=== PATIENT | female | born 1940 | race Caucasian/White ===

== ENCOUNTER → 2018-07-21 09:45 | Outpatient (CLI) | payer MEDICARE, OTHER, SELFPAY ==
[2018-07-21 13:36] LABS: Basophils % 0.5 % (0.1-2.0); Eosinophils # 0.1 K/mm3 (0.0-0.4); Eosinophils % 1.5 % (0.1-12.0); Hematocrit 39.1 % (37.0-47.0); Hemoglobin 12.8 g/dL (12.2-16.2); Lymphocytes # 1.3 K/mm3 (0.7-4.5); Lymphocytes % 26.4 K/mm3 (10-50); Mean Corpuscular HGB Conc 32.7 g/dL (31.8-35.4); Mean Corpuscular Hemoglobin 32.1 pg (27.0-31.2); Mean Corpuscular Volume 98.1 fl (81-99); Mean Platelet Volume 7.2 fl (7.4-10.4); Monocytes # 0.3 K/mm3 (0.1-1.0); Monocytes % 5.7 % (1.7-9.3); Neutrophils # 3.1 K/mm3 (1.8-7.8); Neutrophils % 65.9 % (37.0-80.0); Platelet Count 218 K/mm3 (142-424); Red Blood Count 3.98 M/mm3 (4.20-5.40); Red Cell Distribution Width 12.4 % (11.5-17.5); White Blood Count 4.7 K/mm3 (4.8-10.8)
[2018-07-21 14:09] LABS: Alanine Aminotransferase 17 U/L (12-78); Albumin/Globulin Ratio 1.3 (1.1-1.8); Alkaline Phosphatase 69 U/L (46-116); Anion Gap 15.8 mEq/L (5-15); Aspartate Amino Transferase 15 U/L (15-37); Bilirubin,Total 0.5 mg/dL (0.2-1.0); Blood Urea Nitrogen 14 mg/dL (7-18); Calcium 9.1 mg/dL (8.5-10.1); Carbon Dioxide 28 mmol/L (21.0-32.0); Chloride 102 mmol/L (98-107); Chol/HDL Ratio 2.4 (1-3.5); Cholesterol 126 mg/dL (140-200); Creatinine,Serum 0.72 mg/dL (0.55-1.02); Estimated Glomerular Filt Rate 79 ml/min (>60); Free Thyroxine Index 3.6 ug/dL (5.93-13.13); GFR (African American) 95 ML/MIN (>60); Globulin 3.2 gm/dl (1.3-3.2); Glucose 111 mg/dL (74-106); HDL Cholesterol 53 mg/dL (29-89); LDL Cholesterol 57 mg/dL (0-130); Potassium 3.8 mmoL/L (3.5-5.1); Sodium 142 mmol/L (136-145); T4 (Thyroxine) 10.9 ug/dl (4.7-13.3); Thyroid Stimulating Hormone 2.27 uIU/ml (0.358-3.740); Total Protein,Serum 7.2 gm/dL (6.4-8.2); Triglycerides 78 mg/dL (30-200); Triiodothryronine (T3) Uptake 33 % (31-39); VLDL Cholesterol 16 mg/dL (0-40)
[2018-07-22 10:16] LABS: Vitamin B12 342 pg/mL (232-1245)
== END ==
PROVIDERS: PCP Internal Medicine Adolescent Medicine; Visit Provider Internal Medicine Adolescent Medicine
DX: E05.00 Thyrotoxicosis with diffuse goiter without thyrotoxic crisis or storm (principal); E78.2 Mixed hyperlipidemia; I25.10 Atherosclerotic heart disease of native coronary artery without angina pectoris; E53.8 Deficiency of other specified B group vitamins
CPT/HCPCS: 36415; 80053; 80061; 82607; 84436; 84443; 84479; 85025

== ENCOUNTER → 2019-01-26 10:03 | Outpatient (CLI) | payer MEDICARE, OTHER, SELFPAY ==
[2019-01-26 14:23] LABS: Basophils % 0.6 % (0.1-2.0); Eosinophils # 0.1 K/mm3 (0.0-0.4); Eosinophils % 1.3 % (0.1-12.0); Hematocrit 35.8 % (37.0-47.0); Hemoglobin 12.1 g/dL (12.2-16.2); Lymphocytes # 1.8 K/mm3 (0.7-4.5); Lymphocytes % 30.8 % (10-50); Mean Corpuscular HGB Conc 33.7 g/dL (31.8-35.4); Mean Corpuscular Hemoglobin 32.1 pg (27.0-31.2); Mean Corpuscular Volume 95.3 fl (81-99); Mean Platelet Volume 7.7 fl (7.4-10.4); Monocytes # 0.4 K/mm3 (0.1-1.0); Monocytes % 6.5 % (1.7-9.3); Neutrophils # 3.6 K/mm3 (1.8-7.8); Neutrophils % 60.8 % (37.0-80.0); Platelet Count 190 K/mm3 (142-424); Red Blood Count 3.76 M/mm3 (4.20-5.40); White Blood Count 5.9 K/mm3 (4.8-10.8)
[2019-01-26 16:05] LABS: Alanine Aminotransferase 17 U/L (12-78); Albumin Level 3.9 gm/dL (3.4-5.0); Albumin/Globulin Ratio 1.3 (1.1-1.8); Alkaline Phosphatase 62 U/L (46-116); Anion Gap 14.8 mEq/L (5-15); Aspartate Amino Transferase 9 U/L (15-37); Bilirubin,Total 0.5 mg/dL (0.2-1.0); Blood Urea Nitrogen 14 mg/dL (7-18); Carbon Dioxide 27 mmol/L (21.0-32.0); Chloride 103 mmol/L (98-107); Chol/HDL Ratio 2.6 (1-3.5); Cholesterol 124 mg/dL (140-200); Creatinine,Serum 0.63 mg/dL (0.55-1.02); Estimated Glomerular Filt Rate 92 ml/min (>60); Free Thyroxine Index 2.4 ug/dL (5.93-13.13); GFR (African American) 111 ML/MIN (>60); Globulin 3.1 gm/dl (1.3-3.2); Glucose 93 mg/dL (74-106); HDL Cholesterol 47 mg/dL (29-89); LDL Cholesterol 56 mg/dL (0-130); Potassium 3.8 mmoL/L (3.5-5.1); Sodium 141 mmol/L (136-145); T4 (Thyroxine) 8.1 ug/dl (4.7-13.3); Thyroid Stimulating Hormone 1.86 uIU/ml (0.358-3.740); Triglycerides 105 mg/dL (30-200); Triiodothryronine (T3) Uptake 30 % (31-39); VLDL Cholesterol 21 mg/dL (0-40)
[2019-01-28 07:24] LABS: Vitamin B12 259 pg/mL (232-1245)
== END ==
PROVIDERS: PCP Internal Medicine Adolescent Medicine; Visit Provider Internal Medicine Adolescent Medicine
DX: E78.2 Mixed hyperlipidemia (principal); E05.00 Thyrotoxicosis with diffuse goiter without thyrotoxic crisis or storm; I25.10 Atherosclerotic heart disease of native coronary artery without angina pectoris; E53.8 Deficiency of other specified B group vitamins
CPT/HCPCS: 36415; 80053; 80061; 82607; 84436; 84443; 84479; 85025

== ENCOUNTER → 2019-03-04 07:34 | Outpatient (CLI) | payer MEDICARE, OTHER, SELFPAY ==
--- NOTE | 2019-03-04 08:30 | US_ITS ---
US aorta HISTORY: Evaluate for abdominal aortic aneurysm ITS.REASON: AAA No comparison available FINDINGS: There are mild atheromatous changes of the abdominal aorta. No aneurysm is evident. The proximal common iliacs are unremarkable. Incidental note is made of multiple left renal cysts in the mid lower pole measuring up to 7 cm. IMPRESSION: 1. No evidence of aortic aneurysm. 2. Left renal cysts
== END ==
PROVIDERS: PCP Internal Medicine Adolescent Medicine; Visit Provider Internal Medicine Adolescent Medicine
DX: I71.4 Abdominal aortic aneurysm, without rupture (principal)
CPT/HCPCS: 76770

== ENCOUNTER → 2019-07-27 10:32 | Outpatient (CLI) | payer MEDICARE, OTHER, SELFPAY ==
[2019-07-27 14:39] LABS: Basophils % 0.5 % (0.1-2.0); Eosinophils # 0.1 K/mm3 (0.0-0.4); Hematocrit 37.3 % (37.0-47.0); Hemoglobin 12.3 g/dL (12.2-16.2); Lymphocytes # 1.9 K/mm3 (0.7-4.5); Lymphocytes % 25.4 % (10-50); Mean Corpuscular Hemoglobin 32.7 pg (27.0-31.2); Mean Corpuscular Volume 99.1 fl (81-99); Mean Platelet Volume 8.2 fl (7.4-10.4); Monocytes # 0.6 K/mm3 (0.1-1.0); Monocytes % 7.7 % (1.7-9.3); Neutrophils # 4.8 K/mm3 (1.8-7.8); Neutrophils % 65.4 % (37.0-80.0); Platelet Count 213 K/mm3 (142-424); Red Blood Count 3.77 M/mm3 (4.20-5.40); White Blood Count 7.3 K/mm3 (4.8-10.8)
[2019-07-27 15:37] LABS: Alanine Aminotransferase 11 U/L (12-78); Albumin Level 3.8 gm/dL (3.4-5.0); Albumin/Globulin Ratio 1.2 (1.1-1.8); Alkaline Phosphatase 60 U/L (46-116); Anion Gap 13.8 mEq/L (5-15); Aspartate Amino Transferase 10 U/L (15-37); Bilirubin,Total 0.4 mg/dL (0.2-1.0); Blood Urea Nitrogen 12 mg/dL (7-18); Calcium 9.3 mg/dL (8.5-10.1); Carbon Dioxide 28 mmol/L (21.0-32.0); Chloride 104 mmol/L (98-107); Chol/HDL Ratio 2.2 (1-3.5); Cholesterol 119 mg/dL (140-200); Creatinine,Serum 0.67 mg/dL (0.55-1.02); Estimated Glomerular Filt Rate 85 ml/min (>60); Free Thyroxine Index 3.3 ug/dL (5.93-13.13); GFR (African American) 103 ML/MIN (>60); Globulin 3.1 gm/dl (1.3-3.2); Glucose 94 mg/dL (74-106); HDL Cholesterol 54 mg/dL (29-89); LDL Cholesterol 44 mg/dL (0-130); Potassium 3.8 mmoL/L (3.5-5.1); Sodium 142 mmol/L (136-145); T4 (Thyroxine) 10.1 ug/dl (4.7-13.3); Total Protein,Serum 6.9 gm/dL (6.4-8.2); Triglycerides 104 mg/dL (30-200); Triiodothryronine (T3) Uptake 33 % (31-39); VLDL Cholesterol 21 mg/dL (0-40)
[2019-07-28 16:25] LABS: Vitamin B12 700 pg/mL (232-1245)
== END ==
PROVIDERS: PCP Internal Medicine Adolescent Medicine; Visit Provider Internal Medicine Adolescent Medicine
DX: I25.10 Atherosclerotic heart disease of native coronary artery without angina pectoris (principal); E78.2 Mixed hyperlipidemia; E05.00 Thyrotoxicosis with diffuse goiter without thyrotoxic crisis or storm; E53.8 Deficiency of other specified B group vitamins
CPT/HCPCS: 36415; 80053; 80061; 82607; 84436; 84443; 84479; 85025

== ENCOUNTER → 2020-08-10 11:34 | Outpatient (CLI) | payer MEDICARE, OTHER, SELFPAY ==
--- NOTE | 2020-08-10 11:50 | XR_ITS ---
PROCEDURE: XR HIP RT 2-3V W/PELVIS CLINICAL INDICATION: PRIMARY OSTEOARTHRITIS OF RT HIP COMPARISON: No exams were available for comparison FINDINGS: Severe osteoarthritic changes are present involving the right hip with loss of joint space, osteosclerosis, and osteophyte formation. Prominent bony hypertrophy is present at the acetabula roof laterally. There is some minimal cortical regularity of the femoral head. Associated avascular necrosis is considered as well. No acute fracture or dislocation. No lytic or blastic change. There are mild osteoarthritic changes of the left hip. Faint calcification noted over the right iliac fossa. IMPRESSION: Severe osteoarthritis of the right hip with minimal irregularity of the femoral head which may be related to developing dysplastic change or avascular necrosis. Dictated by: Robbie Zuleta MD 08/10/2020 17:19 Robbie Zuleta MD in [place] 08/10/2020 17:19
== END ==
PROVIDERS: PCP Internal Medicine Adolescent Medicine; Visit Provider Internal Medicine Adolescent Medicine
DX: M16.11 Unilateral primary osteoarthritis, right hip (principal)
CPT/HCPCS: 73502

== ENCOUNTER → 2021-07-17 18:44 | Outpatient (CLI) | payer MEDICARE, OTHER, SELFPAY ==
[2021-07-17 19:18] LABS: Basophils % 0.5 % (0.1-2.0); Eosinophils # 0.1 K/mm3 (0.0-0.4); Eosinophils % 0.7 % (0.1-12.0); Hematocrit 44.3 % (37.0-47.0); Hemoglobin 13.5 g/dL (12.2-16.2); Lymphocytes # 1.3 K/mm3 (0.7-4.5); Lymphocytes % 18.9 % (10-50); Mean Corpuscular HGB Conc 30.5 g/dL (31.8-35.4); Mean Corpuscular Hemoglobin 32.4 pg (27.0-31.2); Mean Corpuscular Volume 106.1 fl (81-99); Mean Platelet Volume 8.3 fl (7.4-10.4); Monocytes # 0.5 K/mm3 (0.1-1.0); Monocytes % 6.9 % (1.7-9.3); Neutrophils # 5.1 K/mm3 (1.8-7.8); Neutrophils % 73.1 % (37.0-80.0); Platelet Count 211 K/mm3 (142-424); Red Blood Count 4.18 M/mm3 (4.20-5.40); Red Cell Distribution Width 12.9 % (11.5-17.5)
[2021-07-17 19:52] LABS: Alanine Aminotransferase 9 U/L (12-78); Albumin Level 4.1 g/dl (3.5-5.0); Albumin/Globulin Ratio 1.5 (1.1-1.8); Alkaline Phosphatase 57 U/L (38-126); Anion Gap 12.6 mEq/L (5-15); Aspartate Amino Transferase 21 U/L (14-36); Bilirubin,Total 0.3 mg/dl (0.2-1.3); Blood Urea Nitrogen 11 mg/dl (7-17); Calcium 9.1 mg/dl (8.4-10.2); Carbon Dioxide 30 mmol/L (22.0-30.0); Chloride 103 mmol/L (98-107); Chol/HDL Ratio 2.1 (1-3.5); Cholesterol 130 mg/dl (140-200); Estimated Glomerular Filt Rate 96 ml/min (>60); GFR (African American) 116 ML/MIN (>60); Globulin 2.7 g/dL (1.3-3.2); Glucose 109 mg/dl (74-100); HDL Cholesterol 61 mg/dl (40-60); Potassium 4.6 mmoL/L (3.5-5.1); Sodium 141 mmol/L (136-145); Total Protein,Serum 6.8 g/dl (6.3-8.2); Triglycerides 81 mg/dl (30-150); VLDL Cholesterol 16 mg/dL (0-40)
[2021-07-17 20:03] LABS: Direct LDL Cholesterol 49.65 mg/dL (100-129)
[2021-07-17 21:04] LABS: Free Thyroxine Index 4.3 ug/dL (5.93-13.13); Triiodothryronine (T3) Uptake 33 % (23.5-40.5)
[2021-07-17 21:17] LABS: Thyroid Stimulating Hormone 3.24 uIU/mL (0.465-4.68)
== END ==
PROVIDERS: Visit Provider Internal Medicine Adolescent Medicine
DX: I47.2 Ventricular tachycardia (principal); Z79.899 Other long term (current) drug therapy
CPT/HCPCS: 80053; 80061; 84436; 84443; 84479; 85025

== ENCOUNTER → 2021-10-24 13:34 | Outpatient (CLI) | payer OTHER, MEDICARE, SELFPAY ==
[2021-10-24 14:03] LABS: Basophils # 0.1 K/mm3 (0-0.2); Eosinophils # 0.1 K/mm3 (0.0-0.4); Hematocrit 31.6 % (37.0-47.0); Hemoglobin 10.1 g/dL (12.2-16.2); Lymphocytes # 0.8 K/mm3 (0.7-4.5); Lymphocytes % 15.2 % (10-50); Mean Corpuscular HGB Conc 31.8 g/dL (31.8-35.4); Mean Corpuscular Hemoglobin 32.8 pg (27.0-31.2); Mean Corpuscular Volume 102.9 fl (81-99); Monocytes # 0.3 K/mm3 (0.1-1.0); Monocytes % 5.6 % (1.7-9.3); Neutrophils # 3.9 K/mm3 (1.8-7.8); Neutrophils % 77.3 % (37.0-80.0); Platelet Count 126 K/mm3 (142-424); Red Blood Count 3.07 M/mm3 (4.20-5.40); Red Cell Distribution Width 16.2 % (11.5-17.5); White Blood Count 5.1 K/mm3 (4.8-10.8)
[2021-10-24 15:37] LABS: Chloride 98 mmol/L (98-107); Sodium 142 mmol/L (136-145)
[2021-10-24 15:40] LABS: Blood Urea Nitrogen 24 mg/dl (7-17); Estimated Glomerular Filt Rate 81 ml/min (>60); GFR (African American) 97 ML/MIN (>60)
[2021-10-24 15:41] LABS: Calcium 8.9 mg/dl (8.4-10.2); Carbon Dioxide 35 mmol/L (22.0-30.0); Glucose 126 mg/dl (74-100)
== END ==
PROVIDERS: Visit Provider Internal Medicine Adolescent Medicine
DX: I25.10 Atherosclerotic heart disease of native coronary artery without angina pectoris (principal); I50.9 Heart failure, unspecified
CPT/HCPCS: 80048; 85025